=== PATIENT | male | born 1995 | race American Indian/Alaskan Native ===

== ENCOUNTER 2019-06-08 20:41 | Emergency (ER) | payer SELFPAY ==
[2019-06-08 21:36] LABS: Basophils % (Auto) 0.2 % (0.0-1.8); Eosinophils % (Auto) 0.6 % (0.0-4.3); Hematocrit 40.6 % (35.5-45.6); Hemoglobin 13.2 gm/dl (11.8-15.2); Lymphocytes # (Auto) 2.5 K/mm3 (1.2-5.4); Mean Corpuscular HGB Conc 33 % (32-34); Mean Corpuscular Volume 90 fl (84-94); Monocytes # (Auto) 0.7 K/mm3 (0.0-0.8); Monocytes % (Auto) 11.8 % (0.0-7.3); Platelet Count 227 K/mm3 (140-440); Red Blood Count 4.52 M/mm3 (3.65-5.03); Red Cell Distribution Width 13.7 % (13.2-15.2)
[2019-06-08 21:50] LABS: BUN/Creatinine Ratio 8; Blood Urea Nitrogen 9 mg/dL (9-20); Calcium 9.3 mg/dL (8.4-10.2); Hemolysis Index 13
[2019-06-08 22:16] LABS: Amphetamine Screen,Urine PRESUMPTIVE NEGATIVE; Benzodiazepines Screen,Urine PRESUMPTIVE NEGATIVE; Cocaine Screen,Urine PRESUMPTIVE NEGATIVE; Methadone Screen,Urine PRESUMPTIVE NEGATIVE; Opiate Screen,Urine PRESUMPTIVE NEGATIVE
[2019-06-08 22:26] LABS: Bacteria,Urine 1+ /HPF (Negative); Bilirubin,Urine NEG (Negative); Blood,Urine NEG (Negative); Color,Urine Amber (Yellow); Mucus,Urine 3+ /HPF
[2019-06-08 22:30] LABS: Cannabinoid Screen,Urine PRESUMPTIVE POSITIVE
--- NOTE | 2019-06-09 03:56 | Cat Scan Report ---
CT HEAD WITHOUT CONTRAST INDICATION: altered mental status TECHNIQUE: All CT scans at this location are performed using CT dose reduction for ALARA by means of automated exposure control. COMPARISON: None available. FINDINGS: BRAIN: No hemorrhage or mass effect are seen. No evidence of acute infarction is noted. ORBITS: Normal as visualized. SOFT TISSUES OF HEAD: Normal. CALVARIUM: Normal. VISUALIZED PARANASAL SINUSES AND MASTOID AIR CELLS: Clear. ADDITIONAL FINDINGS: None. IMPRESSION: No acute intracranial abnormality. Signer Name: Arnie Kohli MD Signed: 06/09/2019 3:52 AM Workstation Name: [id number]
--- NOTE | 2019-06-09 07:13 | Emergency Department Report ---
ED Psych HPI - General Chief Complaint: Altered Mental Status Stated Complaint: MENTAL EVALUATION Time Seen by Provider: 06/09/19 02:57 Source: patient Mode of arrival: Ambulatory Limitations: Other (lack of cooperation) - History of Present Illness Initial Comments: Mr. Camille Fields is a healthy 24-year-old male who presents with bizarre b ehavior over unknown period time. According to triage documentation, mother informed staff her son has had erratic behavior with paranoia. He has been aggressive. No official diagnosis of mental health. Camille will not reply to questions. He will cooperate with commands. When asked if he is in pain, he states no. Complaint: altered mental status -: Gradual, unknown Associated Psychiatric Symptoms: racing thoughts, delusions History of same: No Quality: constant, getting worse Improves With: none Worsens With: none Context: recent drug abuse Associated Symptoms: denies other symptoms Treatments Prior to Arrival: none - Related Data Allergies Allergy/AdvReac Type Severity Reaction Status Date / Time No Known Allergies Allergy Unverified 06/08/19 21:19 ED Review of Systems ROS: Stated complaint: MENTAL EVALUATION Other details as noted in HPI Comment: Unobtainable due to pts medical conditions (patient will not cooperate with questioning) ED Past Medical Hx - Past Medical History Previous Medical History?: No - Surgical History Past Surgical History?: No - Social History Smoking Status: Current Every Day Smoker Substance Use Type: Marijuana ED Physical Exam - General Limitations: No Limitations General appearance: alert, in no apparent distress, other (ambulates without difficulty, will follow commands but will answer questions.) - Head Head exam: Present: atraumatic, normocephalic - Eye Eye exam: Present: normal appearance - ENT ENT exam: Present: mucous membranes moist - Neck Neck exam: Present: normal inspection - Respiratory Respiratory exam: Present: normal lung sounds bilaterally. Absent: respiratory distress, wheezes, rales, rhonchi - Cardiovascular Cardiovascular Exam: Present: regular rate, normal rhythm, normal heart sounds. Absent: systolic murmur, diastolic murmur, rubs, gallop - GI/Abdominal GI/Abdominal exam: Present: soft, normal bowel sounds. Absent: distended, tenderness, guarding, rebound - Rectal Rectal exam: Present: deferred - Extremities Exam Extremities exam: Present: normal inspection - Neurological Exam Neurological exam: Present: alert, altered, normal gait - Psychiatric Psychiatric exam: Present: flat affect - Skin Skin exam: Present: warm, dry, intact, normal color. Absent: rash ED Course Vital Signs 06/08/19 06/08/19 06/09/19 21:12 21:16 00:12 Temperature 98.6 F 98.6 F Pulse Rate 86 86 Respiratory 18 18 16 Rate Blood Pressure 117/63 Blood Pressure 117/63 [Right] O2 Sat by Pulse 99 99 100 Oximetry ED Medical Decision Making - Lab Data Result diagrams: 06/08/19 21:24 06/08/19 21:24 Laboratory Results - last 24 hr 06/08/19 06/08/19 06/08/19 21:24 21:24 21:24 WBC RBC Hgb Hct MCV MCH MCHC RDW Plt Count Lymph % (Auto) Amelia % (Auto) Eos % (Auto) Baso % (Auto) Lymph # Amelia # Eos # Baso # Seg Neutrophils % Seg Neutrophils # Sodium 141 Potassium 3.6 Chloride 100.5 Carbon Dioxide 28 Anion Gap 16 BUN 9 Creatinine 1.1 Estimated GFR > 60 BUN/Creatinine Ratio 8 Glucose 69 L Calcium 9.3 Urine Color Urine Turbidity Urine pH Ur Specific [place] Urine Protein Urine Glucose (UA) Urine Ketones Urine Blood Urine Nitrite Urine Bilirubin Urine Urobilinogen Ur Leukocyte Esterase Urine WBC (Auto) Urine RBC (Auto) Urine Bacteria (Auto) Urine Mucus Salicylates < 0.3 L Urine Opiates Screen Urine Methadone Screen Acetaminophen < 5.0 L Ur Barbiturates Screen Ur Phencyclidine Scrn Ur Amphetamines Screen U Benzodiazepines Scrn Urine Cocaine Screen U Marijuana (THC) Screen Drugs of Abuse Note Plasma/Serum Alcohol 06/08/19 06/08/19 06/08/19 21:24 21:24 21:30 WBC 5.8 RBC 4.52 Hgb 13.2 Hct 40.6 MCV 90 MCH 29 MCHC 33 RDW 13.7 Plt Count 227 Lymph % (Auto) 43.0 H Amelia % (Auto) 11.8 H Eos % (Auto) 0.6 Baso % (Auto) 0.2 Lymph # 2.5 Amelia # 0.7 Eos # 0.0 Baso # 0.0 Seg Neutrophils % 44.4 Seg Neutrophils # 2.6 Sodium Potassium Chloride Carbon Dioxide Anion Gap BUN Creatinine Estimated GFR BUN/Creatinine Ratio Glucose Calcium Urine Color [place] Urine Turbidity Slightly-cloudy Urine pH 5.0 Ur Specific [place] 1.032 H Urine Protein 30 mg/dl Urine Glucose (UA) Neg Urine Ketones Tr Urine Blood Neg Urine Nitrite Neg Urine Bilirubin Neg Urine Urobilinogen 2.0 Ur Leukocyte Esterase Neg Urine WBC (Auto) 3.0 Urine RBC (Auto) 1.0 Urine Bacteria (Auto) 1+ Urine Mucus 3+ Salicylates Urine Opiates Screen Urine Methadone Screen Acetaminophen Ur Barbiturates Screen Ur Phencyclidine Scrn Ur Amphetamines Screen U Benzodiazepines Scrn Urine Cocaine Screen U Marijuana (THC) Screen Drugs of Abuse Note Plasma/Serum Alcohol < 0.01 06/08/19 21:30 WBC RBC Hgb Hct MCV MCH MCHC RDW Plt Count Lymph % (Auto) Amelia % (Auto) Eos % (Auto) Baso % (Auto) Lymph # Amelia # Eos # Baso # Seg Neutrophils % Seg Neutrophils # Sodium Potassium Chloride Carbon Dioxide Anion Gap BUN Creatinine Estimated GFR BUN/Creatinine Ratio Glucose Calcium Urine Color Urine Turbidity Urine pH Ur Specific [place] Urine Protein Urine Glucose (UA) Urine Ketones Urine Blood Urine Nitrite Urine Bilirubin Urine Urobilinogen Ur Leukocyte Esterase Urine WBC (Auto) Urine RBC (Auto) Urine Bacteria (Auto) Urine Mucus Salicylates Urine Opiates Screen Presumptive negative Urine Methadone Screen Presumptive negative Acetaminophen Ur Barbiturates Screen Presumptive negative Ur Phencyclidine Scrn Presumptive negative Ur Amphetamines Screen Presumptive negative U Benzodiazepines Scrn Presumptive negative Urine Cocaine Screen Presumptive negative U Marijuana (THC) Screen Presumptive positive Drugs of Abuse Note Disclamer Plasma/Serum Alcohol - Medical Decision Making Mr. Fields has been brought to the emergency department by his mother for bizarre behavior. He has had erratic compulsive behavior with violent tendencies with paranoia. I am concerned for acute psychosis possibly drug induced. I do not see signs of organic disease which would account for the symptoms such as meningitis metabolic derangement, intracranial lesion. He has normal physical exam with exception of psychiatric component. He has been placed on 1013 involuntary hold. I am concerned that he is a threat of harm to himself and others. Awaiting treatment recommendations by our psychiatric team. Critical care attestation.: If time is entered above; I have spent that time in minutes in the direct care of this critically ill patient, excluding procedure time. ED Disposition Clinical Impression: Acute psychosis, Marijuana abuse Disposition: [id number]/TX-[id number] ANOTHER TYPE HLTHCARE Is pt being admited?: No Does the pt Need Aspirin: No Condition: Stable
--- NOTE | 2019-06-09 14:16 | Consultation ---
History of Present Illness - Reason for Consult Consult date: 06/09/19 Reason for consult: Mental Health Evaluation Requesting physician: NELL DU - Chief Complaint Chief complaint: "The patient refuse to communicate" - History of Present Psychiatric Illness 24 y.o. AA male who presented to the ER for bizarre behavior per his mother. Today the patient would not cooperate during the assessment. Several attempts was made to engage the patient, but was unsuccessful. Medications and Allergies Allergies Allergy/AdvReac Type Severity Reaction Status Date / Time No Known Allergies Allergy Unverified 06/08/19 21:19 Past psychiatric history - Past Medical History Past Medical History: other (Unable to obtain ) Past Surgical History: Other (Unable to obtain ) - past Psychiatric treatment and history psychiatric treatment history: Unable to obtain a psy hx and fam psy hx. - Social History Social history: lives with family, other Mental Status Exam - Vital signs Last Vital Signs Temp 97.9 F 06/09/19 08:50 Pulse 62 06/09/19 08:50 Resp 16 06/09/19 08:50 BP 117/75 06/09/19 08:50 Pulse Ox 100 06/09/19 08:50 - Exam Narrative exam: Unable to complete the MSE because the patient refuse to cooperate. Results Result Diagrams: 06/08/19 21:24 06/08/19 21:24 Abnormal lab results 06/08/19 06/08/19 06/08/19 Range/Units 21:24 21:24 21:24 Lymph % (Auto) (13.4-35.0) % [place] % (Auto) (0.0-7.3) % Glucose 69 L (75-100) mg/dL Ur Specific [place] (1.003-1.030) Salicylates < 0.3 L (2.8-20.0) mg/dL Acetaminophen < 5.0 L (10.0-30.0) ug/mL 06/08/19 06/08/19 Range/Units 21:24 21:30 Lymph % (Auto) 43.0 H (13.4-35.0) % [place] % (Auto) 11.8 H (0.0-7.3) % Glucose (75-100) mg/dL Ur Specific [place] 1.032 H (1.003-1.030) Salicylates (2.8-20.0) mg/dL Acetaminophen (10.0-30.0) ug/mL All other labs normal. Assessment and Plan Assessment and plan: Impression: Today the patient would not cooperate during the assessment. Recommendation/Plan: Attempt the reassess the patient in 24 hours[address] Will staff with Dr Humaira Duncan.
--- NOTE | 2019-06-10 11:04 | Progress Note ---
Subjective - Reason for Consult Consult date: 06/10/19 Reason for consult: Psychiatry Follow-up - Chief Complaint Chief complaint: "Hello" 24 y.o. AA male who presented to the ER for bizarre behavior per his mother. Today the patient was guarded during the assessment. He would answer a few questions when asked. He did state that his mother brought him to the ER. No gestures of SI/HI's. Mental Status Exam - Vital signs Last Vital Signs Temp 98.0 F 06/10/19 07:00 Pulse 60 06/10/19 07:00 Resp 18 06/10/19 07:00 BP 105/55 06/10/19 07:00 Pulse Ox 100 06/10/19 07:00 - Exam Narrative exam: Unable to complete the MSE because the patient refuse to cooperate. Assessment and Plan Impression: Today the patient was guarded and during the assessment. The patient was positive for marijuana. Recommendation/Plan: Continue 1013 and gather collateral information. Dispo: The patient was referred to inpatient psy services. Staffed with Dr Humaira Duncan.
--- NOTE | 2019-06-11 09:31 | Progress Note ---
Subjective - Reason for Consult Consult date: 06/11/19 Reason for consult: Psychiatry Follow-up - Chief Complaint Chief complaint: "Ask my mother" 24 y.o. AA male who presented to the ER for bizarre behavior per his mother. Today the patient was efraín, but preoccupied during the assessment. He appeared to be responding to some type of stimuli. He is adamant that his mother know why he's in the ER. Most of his answers to questions were not logical. His insight is poor at this time. He denies SI/HI's and VH's. He will not confirm or deny AH's. Mental Status Exam - Vital signs Last Vital Signs Temp 97.7 F 06/11/19 01:09 Pulse 70 06/11/19 01:09 Resp 20 06/11/19 01:09 BP 127/54 06/11/19 01:09 Pulse Ox 100 06/11/19 01:09 - Exam Narrative exam: MSE: Appearance: calm Behavior: regular eye contact Speech: regular rate and tone Mood: preoccupied Affect: congruent to mood Thought Process: somewhat disorganized Thought Content: denies SI/HI's and VH's, responding to some type of stimuli Motor Activity: sitting up in bed Cognition: A/O x 3 Insight: poor Judgment: poor Assessment and Plan Impression: Unspecified Psychosis. Today the patient was calm, but preoccupied during the assessment. DDx: Schizophrenia, Substance Induced Psychosis Recommendation/Plan: Continue 1013 and start Zyprexa 5 mg PO HS for psychosis. Attempted to discuss metabolic side effects of Zyprexa with the patient. Baseline A1c/Lipid Panel ordered for the AM. Dispo: The patient was referred to inpatient psy services. Will staff with Dr Humaira Duncan.
[2019-06-11] MEDS ORDERED: GEODON IM PRN (14:39)
[2019-06-12 05:55] LABS: Chol/HDL Ratio 3.12 %
--- NOTE | 2019-06-12 08:59 | Progress Note ---
Subjective - Reason for Consult Consult date: 06/12/19 Reason for consult: Psychiatry Follow-up - Chief Complaint Chief complaint: "Hello" 24 y.o. AA male who presented to the ER for bizarre behavior per his mother. Today the patient was calm, but still preoccupied during the assessment. He wouldn't answer most questioned asked of him. No gestures of SI/HI's. No indications of side effects form his medication. Mental Status Exam - Vital signs Last Vital Signs Temp 98.5 F 06/12/19 08:21 Pulse 68 06/12/19 08:21 Resp 18 06/12/19 08:21 BP 122/65 06/12/19 08:21 Pulse Ox 99 06/12/19 08:21 - Exam Narrative exam: MSE: Appearance: calm Behavior: regular eye contact Speech: regular rate and tone Mood: preoccupied Affect: congruent to mood Thought Process: unable to assess Thought Content: no gestures of SI/HI's, responding to some type of stimuli Motor Activity: sitting up in bed Cognition: A/O x 3 Insight: unable to assess Judgment: unable to assess Assessment and Plan Impression: Unspecified Psychosis. Today the patient was calm, but still preoccupied during the assessment. DDx: Schizophrenia, Substance Induced Psychosis Recommendation/Plan: Continue 1013 and Zyprexa 5 mg PO HS for psychosis. Attempted to discuss metabolic side effects of Zyprexa with the patient. Baseline A1c/Lipid Panel ordered for the AM. Dispo: The patient was referred to inpatient psy services. Will staff with Dr Humaira Duncan.
[2019-06-12 20:00] VITALS: BP 98/64
== END 2019-06-13 02:00 ==
LOC: EEVIPCON 20:41 → ED 20:41
DX: F23 Brief psychotic disorder (principal); F12.10 Cannabis abuse, uncomplicated; F17.200 Nicotine dependence, unspecified, uncomplicated
CPT/HCPCS: 36415; 80048; 80061; 80307; 81001; 82962; 83036; 85025; 99285; J3486; 80320; G0480

== ENCOUNTER 2021-07-26 23:24 | Emergency (ER) | payer SELFPAY ==
[2021-07-26 23:41] VITALS: BP 128/76
--- NOTE | 2021-07-26 23:41 | Emergency Department Report ---
ED General Adult HPI - General Chief complaint: Medical Clearance Stated complaint: HEADACHE/COLD SYMPTOMS/PSYCH Time Seen by Provider: 07/26/21 23:31 Source: patient Mode of arrival: Ambulatory Limitations: No Limitations - History of Present Illness Initial comments: Patient presents with multiple issues including upper respiratory symptoms and psychiatric issues. Patient was having cough and congestion. There has been no fever or chills. He states that he does have muscle aches and body but he just does not feel well. There is been no vomiting or diarrhea. He has had no sick contacts that he can recall. Cough has been nonproductive. He states that he had taken some cough medicine which had helped. He is not taking any cough medicine currently. He also states that he is out of his psychiatric medications. He has been treated for schizophrenia and was on Zyprexa and Zoloft. He has not taken those. He states that he has not taken those in a couple of months now. He would like to get back on them. He is not suicidal. He is not homicidal. He states that he does hear voices but he has not been responding to those voices. Because the fact he is out of medications, he decided to come here for treatment. - Related Data Previous Rx's Medication Instructions Recorded Last Taken Type Ibuprofen [Motrin] 800 mg PO Q8HR PRN #20 tablet 07/26/21 Unknown Rx OLANzapine ZYDIS [ZyPREXA Zydis] 10 mg PO DAILY #30 tab.rapdis 07/26/21 Unknown Rx Sertraline [Zoloft] 25 mg PO QDAY #14 tab 07/26/21 Unknown Rx guaiFENesin/DEXTROMETHORPHAN 1 each PO BID #20 tab.er.12h 07/26/21 Unknown Rx [Mucinex Dm ER 600-30 mg Tablet] Allergies Allergy/AdvReac Type Severity Reaction Status Date / Time No Known Allergies Allergy Unverified 06/08/19 21:19 ED Review of Systems ROS: Stated complaint: HEADACHE/COLD SYMPTOMS/PSYCH Other details as noted in HPI ED Past Medical Hx - Past Medical History Previous Medical History?: Yes Hx Psychiatric Treatment: Yes (schizophrenia) - Surgical History Past Surgical History?: No - Family History Family history: no significant - Social History Smoking Status: Current Every Day Smoker (We discussed tobacco cessation x3 minutes) Substance Use Type: Marijuana - Medications Home Medications: Home Medications Medication Instructions Recorded Confirmed Last Taken Type Ibuprofen [Motrin] 800 mg PO Q8HR PRN #20 tablet 07/26/21 Unknown Rx OLANzapine ZYDIS [ZyPREXA Zydis] 10 mg PO DAILY #30 tab.rapdis 07/26/21 Unknown Rx Sertraline [Zoloft] 25 mg PO QDAY #14 tab 07/26/21 Unknown Rx guaiFENesin/DEXTROMETHORPHAN 1 each PO BID #20 tab.er.12h 07/26/21 Unknown Rx [Mucinex Dm ER 600-30 mg Tablet] ED Physical Exam - General Limitations: No Limitations, Other (Pulse ox noted and normal) General appearance: alert, in no apparent distress - Head Head exam: Present: atraumatic, normocephalic, normal inspection - Eye Eye exam: Present: normal appearance, EOMI. Absent: scleral icterus - ENT ENT exam: Present: normal exam, normal orophraynx, normal external ear exam - Neck Neck exam: Present: normal inspection. Absent: meningismus - Respiratory Respiratory exam: Present: normal lung sounds bilaterally. Absent: respiratory distress - Cardiovascular Cardiovascular Exam: Present: regular rate, normal rhythm - GI/Abdominal GI/Abdominal exam: Present: soft. Absent: tenderness - Extremities Exam Extremities exam: Present: normal capillary refill - Back Exam Back exam: Absent: CVA tenderness (R), CVA tenderness (L) - Neurological Exam Neurological exam: Present: alert, oriented X3, CN II-XII intact, normal gait. Absent: motor sensory deficit - Psychiatric Psychiatric exam: Present: normal affect, normal mood. Absent: homicidal ideation, suicidal ideation - Skin Skin exam: Present: warm, dry ED Course Vital Signs 07/26/21 23:36 Temperature 97.9 F Pulse Rate 70 Respiratory 15 Rate Blood Pressure 128/76 O2 Sat by Pulse 99 Oximetry - Reevaluation(s) Reevaluation #1: 07/27/21 00:08 Patient was seen. We did offer medications. He was discharged. ED Medical Decision Making - Medical Decision Making Patient presented with upper respiratory symptoms and psychiatric symptoms. The upper respiratory infection could be treated symptomatically. We have discussed the possibility of Covid. He can follow-up for outpatient testing if he is concerned. He can isolate at home. There are no adventitious breath sounds to suggest pneumonia. Is not hypoxic. I do not believe he requires mission. He also had some psychiatric concerns. He requested medication refill. He is comfortable going home with medication. He does not believe he needs to be seen by psychiatric services. He is not suicidal. Is not homicidal. He does not seem to be responding to extraneous stimuli. Critical care attestation.: If time is entered above; I have spent that time in minutes in the direct care of this critically ill patient, excluding procedure time. ED Disposition Clinical Impression: Acute URI, Medication refill Disposition: HOME / SELF CARE / HOMELESS Is pt being admited?: No Condition: Stable Instructions: Viral Respiratory Infection, [id number], Cough, Adult Additional Instructions: DRINK WATER. USE TYLENOL FOR FEVER. RETURN FOR PROBLEMS. SEE YOUR DOCTOR FOR RECHECK. IF YOU DO NOT HAVE A DOCTOR, SEE THE REFERRAL DOCTOR. Prescriptions: Ibuprofen [Motrin] 800 mg PO Q8HR PRN #20 tablet PRN Reason: Pain , Severe (7-10) guaiFENesin/DEXTROMETHORPHAN [Mucinex Dm ER 600-30 mg Tablet] 1 each PO BID #20 tab.er.12h Sertraline [Zoloft] 25 mg PO QDAY #14 tab OLANzapine ZYDIS [ZyPREXA Zydis] 10 mg PO DAILY #30 tab.rapdis Referrals: PRIMARY CAREMD [Referring] - 3-5 Days LOUANN BHATIA MD [Staff Physician] - 3-5 Days
== END 2021-07-27 00:07 | disposition home or self-care (01) ==
LOC: ED 23:24
DX: J06.9 Acute upper respiratory infection, unspecified (principal); Z76.0 Encounter for issue of repeat prescription; F20.9 Schizophrenia, unspecified; F17.200 Nicotine dependence, unspecified, uncomplicated; F12.90 Cannabis use, unspecified, uncomplicated; Z79.899 Other long term (current) drug therapy
CPT/HCPCS: 99282